=== PATIENT | female | born 1990 | race Caucasian/White ===

== ENCOUNTER 2017-06-22 08:51 | Emergency (ER) | payer OTHER ==
[~2017-06-22] VITALS: Ht 170.2 cm; Wt 56.7 kg
[~2017-06-22 08:51] MED LIST: MEDR400V IM
[2017-06-22 08:55] VITALS: BP 138/91
== END 2017-06-22 09:12 | disposition home or self-care (01) ==
LOC: ER 08:52
DX: H10.9 Unspecified conjunctivitis (principal); Z91.013 Allergy to seafood
CPT/HCPCS: 99283; A4606; Z7610